=== PATIENT | female | born 1940 ===

== ENCOUNTER → 2023-07-13 10:05 | Outpatient (REF) | payer OTHER, MEDICARE, SELFPAY ==
[2023-07-13 12:05] LABS: Iron 33 ug/dl (37-170)
[2023-07-13 12:14] LABS: Percent Saturation 13 % (20-50); Total Iron Binding Capacity 245 ug/dl (265-497)
== END ==
LOC: OLABWHC 10:05
PROVIDERS: ATTENDING PHYSICIAN Internal Medicine
DX: D50.9 Iron deficiency anemia, unspecified (principal)
CPT/HCPCS: 36415; 83540; 83550

== ENCOUNTER → 2023-09-25 11:16 | Outpatient (REF) | payer MEDICARE, SELFPAY ==
[2023-09-25 11:50] LABS: Hematocrit 27.4 % (37.0-47.0); Hemoglobin 8.6 g/dL (12.0-16.0); Mean Corp Hgb Conc. 31.4 g/dL (33.0-37.0); Mean Corpuscular Hgb 22.9 pg (27.0-31.0); Mean Corpuscular Volume 72.9 fL (81.0-99.0); Platelet Count 250 10^3/uL (130-400); Red Blood Cell Count 3.76 10^6/uL (4.20-5.40); Red Cell Dist. Width 18.4 % (11.5-14.5); White Blood Cell Count 6.2 10^3/uL (4.8-10.8)
[2023-09-25 12:18] LABS: ALT (SGPT) < 10 U/L (0-35); AST (SGOT) 10 U/L (14-36); Albumin 2.7 g/dl (3.5-5.0); Alkaline Phosphatase 67 U/L (38-126); Blood Urea Nitrogen 18 mg/dl (7-17); Calcium 8.7 mg/dl (8.4-10.2); Carbon Dioxide 30 mmol/L (22-30); Chloride 105 mmol/L (98-107); Glucose 80 mg/dl (70-99); HDL Cholesterol 28 mg/dl; LDL Cholesterol, Calculated 92 mg/dl; Magnesium 1.8 mg/dl (1.6-2.3); Potassium 3.8 mmol/L (3.5-5.1); Sodium 138 mmol/L (135-145); Total Bilirubin 0.1 mg/dl (0.2-1.3); Total Cholesterol 136 mg/dl (50-199); Total Protein 5.8 g/dl (6.3-8.2); Triglyceride 82 mg/dl (10-149); Very Low Density Lipoprotein 16 mg/dl (0-30); eGFR > 60.00
[2023-09-25 12:32] LABS: Free T4 0.98 ng/dl (0.78-2.19)
[2023-09-25 12:47] LABS: TSH 1.55 uIU/ml (0.47-4.68)
[2023-09-26 08:53] LABS: Glycohemoglobin (HgbA1c) 5.5 % (4.0-5.6)
== END ==
LOC: OLABWHC 11:16
PROVIDERS: ATTENDING PHYSICIAN Internal Medicine
DX: D50.9 Iron deficiency anemia, unspecified (principal); I10 Essential (primary) hypertension; E44.0 Moderate protein-calorie malnutrition; Z79.899 Other long term (current) drug therapy
CPT/HCPCS: 36415; 80053; 80061; 83036; 83735; 84439; 84443; 85027